=== PATIENT | female | born 1995 | race Caucasian/White ===

== ENCOUNTER 2023-07-21 09:00 | Day surgery (SDC) | payer BC ==
[2023-07-21 10:02] VITALS: BMI 23.3
[2023-07-21 10:19] LABS: Bilirubin Neg (Negative); Blood, Urine Negative (Negative); Glucose, Urine (Dipstick) Normal (Negative); Ketone, Urine Negative (Negative); Leukocyte Negative (Negative); Nitrite Negative (Negative); Protein, Urine (Dipstick) Negative (Neg-Trace); Specific Gravity, Urine 1.005 (1.005-1.030); Urobilinogen Normal mg/dL (Less than 2)
[2023-07-21 10:24] LABS: Clarity Clear (Clear)
[2023-07-21] MEDS ORDERED: hydrALAZINE 20 MG/ML VIAL SLOW IVP PRN (11:35)
[2023-07-21 12:55] LABS: #Basophils 0.1 10x3/uL (0.0-0.2); #Monocytes 0.9 10x3/uL (0.0-1.1); #Neutrophils 12.9 10x3/uL (1.5-8.4); %Basophils 0.4 % (0.0-2.0); %Eosinophils 0.2 % (0.0-6.0); %Lymphocytes 11.8 % (18.0-47.0); %Monocytes 5.5 % (0.0-10.0); %Neutrophils 80.3 % (40.0-75.0); Hematocrit 36.6 % (34.9-44.5); Hemoglobin 12.8 g/dL (12.0-15.5); Mean Corpuscular Hemoglobin 32.7 pg (27.0-33.0); Mean Corpuscular Volume 93.6 fl (81.6-98.3); Mean Platelet Volume 11.6 fl (7.4-10.4); Platelet Count 193 10x3/uL (150-450); RBC Distribution Width 12.5 % (11.5-14.5); Red Blood Cell (RBC) Count 3.91 10x6/uL (3.90-5.03); White Blood Cell (WBC) Count 16.1 10x3/uL (3.5-10.5)
[2023-07-21 13:26] LABS: ALT (SGPT) 25 U/L (8-55); AST (SGOT) 37 U/L (5-34); Albumin 3.5 g/dL (3.5-5.0); Alkaline Phosphatase 128 U/L (40-110); Anion Gap 16 mmol/L (10-20); BUN (Urea Nitrogen) 5 mg/dL (7.0-18.7); Bilirubin, Total 0.5 mg/dL (0.2-1.2); Calc. Creatinine Clearance 152 mL/min (70-130); Calcium 8.7 mg/dL (7.8-10.44); Carbon Dioxide 20 mmol/L (22-29); Chloride 106 mmol/L (98-107); Estimated GFR 122; Globulin 2.6 g/dL (2.4-3.5); Glucose 76 mg/dL (70-105); Potassium 3.6 mmol/L (3.5-5.1); Protein, Total 6.1 g/dL (6.0-8.3); Sodium 138 mmol/L (136-145)
== END 2023-07-21 14:00 | disposition home or self-care (01) ==
LOC: CSHLD/OP 09:00
PROVIDERS: ATTEND Advanced Practice Midwife
DX: O36.8130 Decreased fetal movements, third trimester, not applicable or unspecified (principal); Z3A.34 34 weeks gestation of pregnancy
CPT/HCPCS: 36416; 76819; 80053; 81003; 85025

== ENCOUNTER 2023-08-12 16:50 | Day surgery (SDC) | payer BC ==
[2023-08-12] MEDS ORDERED: hydrALAZINE 20 MG/ML VIAL SLOW IVP PRN (17:08)
[2023-08-12 17:44] VITALS: BMI 23.6
[2023-08-12 18:08] LABS: #Monocytes 0.8 10x3/uL (0.0-1.1); #Neutrophils 9.1 10x3/uL (1.5-8.4); %Basophils 0.3 % (0.0-2.0); %Eosinophils 0.2 % (0.0-6.0); %Lymphocytes 14.1 % (18.0-47.0); %Monocytes 6.6 % (0.0-10.0); %Neutrophils 77.9 % (40.0-75.0); Hematocrit 34.6 % (34.9-44.5); Hemoglobin 12.2 g/dL (12.0-15.5); Mean Corpuscular HGB CONC 35.3 g/dL (32.0-36.0); Mean Corpuscular Hemoglobin 33.2 pg (27.0-33.0); Platelet Count 194 10x3/uL (150-450); RBC Distribution Width 12.6 % (11.5-14.5); Red Blood Cell (RBC) Count 3.68 10x6/uL (3.90-5.03); White Blood Cell (WBC) Count 11.7 10x3/uL (3.5-10.5)
[2023-08-12 18:21] LABS: ALT (SGPT) 25 U/L (8-55); AST (SGOT) 35 U/L (5-34); Albumin 3.2 g/dL (3.5-5.0); Alkaline Phosphatase 144 U/L (40-110); Anion Gap 14 mmol/L (10-20); BUN (Urea Nitrogen) 6 mg/dL (7.0-18.7); Bilirubin, Total 0.3 mg/dL (0.2-1.2); Calc. Creatinine Clearance 162 mL/min (70-130); Calcium 8.5 mg/dL (7.8-10.44); Carbon Dioxide 19 mmol/L (22-29); Chloride 106 mmol/L (98-107); Estimated GFR 123; Globulin 2.6 g/dL (2.4-3.5); Glucose 102 mg/dL (70-105); Potassium 3.3 mmol/L (3.5-5.1); Protein, Total 5.8 g/dL (6.0-8.3); Sodium 136 mmol/L (136-145)
[2023-08-12] MEDS ORDERED: Potassium Chloride 20 MEQ TAB PO SCH (19:15)
== END 2023-08-12 19:35 | disposition home or self-care (01) ==
LOC: CSHLD/OP 16:50
PROVIDERS: ATTEND Student in an Organized Health Care Education/Training Program
DX: O16.3 Unspecified maternal hypertension, third trimester (principal); O99.283 Endocrine, nutritional and metabolic diseases complicating pregnancy, third trimester; E87.6 Hypokalemia; Z3A.37 37 weeks gestation of pregnancy
CPT/HCPCS: 36415; 80053; 85025

== ENCOUNTER 2023-08-21 15:08 | Inpatient (IN) | payer BC ==
[2023-08-21 15:33] VITALS: BMI 23.4
[2023-08-21] MEDS ORDERED: Misoprostol 200 MCG TAB PR PRN (15:44)
[2023-08-21] MEDS ORDERED: Promethazine HCl 25 MG/ML VIAL IM PRN (15:44)
[2023-08-21] MEDS ORDERED: Carboprost 250 MCG/ML AMP IM PRN (15:44)
[2023-08-21] MEDS ORDERED: Diphenoxylate HCl/Atropine Tablet PO PRN (15:44)
[2023-08-21] MEDS ORDERED: Lidocaine 1% (PF) 30 ML VIAL SC PRN (15:44)
[2023-08-21] MEDS ORDERED: Ondansetron PF 4 MG/2 ML Vial IVP PRN (15:44)
[2023-08-21] MEDS ORDERED: hydrALAZINE 20 MG/ML VIAL SLOW IVP PRN (15:44)
[2023-08-21] MEDS ORDERED: Methylergonovine 0.2 MG/ML VIAL IM PRN (15:44)
[2023-08-21] MEDS ORDERED: Tranexamic Acid 1,000 MG/10 ML VIAL IVP PRN (15:44)
[2023-08-21] MEDS ORDERED: Oxytocin 30 units/NS 500 ML 500 ML IV SCH ×2 (15:45)
[2023-08-21 17:38] LABS: Hematocrit 39.6 % (34.9-44.5); Hemoglobin 13.7 g/dL (12.0-15.5); Mean Corpuscular HGB CONC 34.6 g/dL (32.0-36.0); Mean Corpuscular Hemoglobin 32.3 pg (27.0-33.0); Mean Corpuscular Volume 93.4 fl (81.6-98.3); Mean Platelet Volume 11.9 fl (7.4-10.4); Platelet Count 223 10x3/uL (150-450); RBC Distribution Width 12.5 % (11.5-14.5); Red Blood Cell (RBC) Count 4.24 10x6/uL (3.90-5.03); White Blood Cell (WBC) Count 20.7 10x3/uL (3.5-10.5)
[2023-08-21 18:10] LABS: Syphilis Antibody Nonreactive (Nonreactive); Syphilis Antibody Index 0.05 S/CO (<1.00 Non-Reactive)
[2023-08-21 18:11] LABS: HBSAg Index 0.16 S/CO (0-0.99); Hep B Surf Ag - L&D Non-Reactive S/CO (NonReactive)
[2023-08-22] MEDS ORDERED: fentaNYL 50 mcg/mL 1 mL Vial ONE (01:27)
[2023-08-22] MEDS ORDERED: Oxytocin 30 units/NS 500 ML 500 ML IV SCH (01:47)
[2023-08-22] MEDS ORDERED: Ondansetron PF 4 MG/2 ML Vial IVP PRN (01:47)
[2023-08-22] MEDS ORDERED: Misoprostol 200 MCG TAB VAG PRN (01:47)
[2023-08-22] MEDS ORDERED: Milk Of Magnesia 30 ML UDCUP PO PRN (01:47)
[2023-08-22] MEDS ORDERED: HYDROcodone/Acetaminophen 5/325 mg Tablet PO PRN ×2 (01:47)
[2023-08-22] MEDS ORDERED: Boostrix 0.5 ML (Tdap) VIAL (>/=7 yrs of age) IM ONE (01:47)
[2023-08-22] MEDS ORDERED: hydrALAZINE 20 MG/ML VIAL SLOW IVP PRN (01:47)
[2023-08-22] MEDS ORDERED: Bisacodyl 10 MG SUPP PR PRN (01:47)
[2023-08-22] MEDS ORDERED: fentaNYL 50 mcg/mL 1 mL Vial SLOW IVP SCH (02:00)
[2023-08-22] MEDS: Ibuprofen 800 MG TAB PO SCH ×3 (02:41→18:08)
[2023-08-22] MEDS ORDERED: Ibuprofen 800 MG TAB PO SCH (06:00)
[2023-08-22] MEDS ORDERED: Benzocaine-Menthol 82.5 ML CAN TOP PRN (08:35)
[2023-08-22] MEDS ORDERED: Witch Hazel-Glycerin 1 EACH JAR TOP PRN (08:35)
[2023-08-22] MEDS: Ferrous Sulfate 325 MG TAB PO SCH ×2 (09:00→19:01)
[2023-08-22] MEDS: Prenatal Vitamin 1 TAB PO SCH (09:00)
[2023-08-22] MEDS: Docusate 100 MG CAP PO SCH ×2 (09:24→21:41)
[2023-08-23] MEDS: Ibuprofen 800 MG TAB PO SCH (03:33)
[2023-08-23 07:51] VITALS: BP 106/58; TEMP 98.6
[2023-08-23] MEDS: Prenatal Vitamin 1 TAB PO SCH (08:41)
[2023-08-23] MEDS: Ferrous Sulfate 325 MG TAB PO SCH (08:41)
[2023-08-23] MEDS: Docusate 100 MG CAP PO SCH (08:41)
== END 2023-08-23 12:24 | disposition home or self-care (01) | DRG 807 ==
LOC: CSHLD/OP 15:08 → CSHLD 16:09 → CSHPP 08-22 03:45
PROVIDERS: ADMIT Obstetrics & Gynecology; ATTEND Obstetrics & Gynecology
PROC: 10E0XZZ Delivery of Products of Conception, External Approach (ICD-10-PCS; principal; 2023-08-22)
PROC: 0KQM0ZZ Repair Perineum Muscle, Open Approach (ICD-10-PCS; 2023-08-22)
PROC: 10907ZC Drainage of Amniotic Fluid, Therapeutic from Products of Conception, Via Natural or Artificial Opening (ICD-10-PCS; 2023-08-22)
PROC: 0UQMXZZ Repair Vulva, External Approach (ICD-10-PCS; 2023-08-22)
DX: O70.1 Second degree perineal laceration during delivery (principal); Z37.0 Single live birth; Z3A.39 39 weeks gestation of pregnancy
CPT/HCPCS: 36415; 85027; 86780; 86850; 86900; 86901; 87340; 99285; J2001; J2590; J3010

== ENCOUNTER 2024-09-17 08:44 | Emergency (ER) | payer BC ==
[2024-09-17] MEDS ORDERED: predniSONE 20 MG TAB ONE (09:34)
[2024-09-17] MEDS ORDERED: Acetaminophen 500 MG TAB ONE ×2 (09:35→09:41)
[2024-09-17] MEDS ORDERED: Lidocaine 4% Patch ONE (09:35)
[2024-09-17] MEDS ORDERED: Methocarbamol 500 MG TAB ONE (09:35)
== END 2024-09-17 10:14 | disposition home or self-care (01) ==
LOC: CSHERS 08:44
DX: M54.12 Radiculopathy, cervical region (principal)
CPT/HCPCS: 93005; 99283; J7512